=== PATIENT | male | born 1970 ===

== ENCOUNTER 2022-02-17 10:28 | Inpatient (IN) | payer OTHER, MEDICAID ==
[2022-02-17] VITALS (7 sets, daily range): BP systolic 103–112; BP diastolic 63–77
[~2022-02-17] VITALS: Ht 175.3 cm; Wt 111.4 kg
[2022-02-17 11:38] LABS: Basophils # (auto) 0 10 ^3/uL (0-0.2); Eosinophils # (auto) 0 10 ^3/uL (0-0.8); Eosinophils % (auto) 0.4 % (0.0-7.0); Lymphocytes # (auto) 0.2 10 ^3/uL (0.4-5.4); White Blood Cell 7.2 10^3/uL (4.4-10.8)
[2022-02-17 11:41] LABS: Albumin 1.6 g/dL (3.4-5.0); Basophils % (auto) 0.7 % (0.0-2.0); Calcium 8.5 mg/dL (8.5-10.1); Hematocrit 21.1 % (41.0-53.0); Lymphocytes % (auto) 2.8 % (10.0-50.0); Mean Corpuscular Hemoglobin 28.9 pg (28.0-32.0); Mean Corpuscular Volume 90.4 fL (80.0-100.0); Monocytes % (auto) 13.4 % (0.0-12.0); Neutrophils % (auto) 82.7 % (37.0-80.0); Nucleated Red Blood Cells % 0.1 %; Potassium 4.2 mmol/L (3.5-5.1); Red Blood Cells 2.34 10^6/uL (4.5-5.90)
[2022-02-17 11:43] LABS: Red Cell Distribution Width 21.1 % (11.8-14.3)
[2022-02-17 11:45] LABS: BUN/Creatinine Ratio 33.3; Bilirubin, Total 1.3 mg/dL (0.2-1.0); Total Protein 6.2 g/dL (6.4-8.2)
[2022-02-17 11:46] LABS: Hemoglobin 6.8 g/dL (13.5-17.5)
[2022-02-17 11:56] LABS: INR 1.27 (0.9-1.15); Partial Thromboplastin Time 37.3 sec (23.6-33.0)
[2022-02-17] MEDS ORDERED: cefTRIAXone 1GM/50ML D5W 50 ML IV ONE (13:45)
[2022-02-17] MEDS ORDERED: IOHEXOL 350 MG/ML 100ML IJ ONE ×2 (13:59→19:59)
[2022-02-17 14:40] LABS: Lactic Acid w/Reflex 4.8 mmol/L (0.4-2.0)
[2022-02-17] MEDS ORDERED: MORPHINE SULFATE INJ 2 MG/ml SYRG IV PRN (15:00)
[2022-02-17] MEDS ORDERED: NITROGLYCERIN 0.4 MG SL TAB SL PRN (15:00)
[2022-02-17] MEDS ORDERED: ONDANSETRON HCL 4 MG/2 ML VIAL IV PRN (15:15)
[2022-02-17] MEDS ORDERED: hydrALAZINE HCL 20 MG/ML VL IV PRN (15:15)
[2022-02-17] MEDS ORDERED: TPN PER PHARMACY 0 ML IV SCH (16:00)
[2022-02-17] MEDS ORDERED: DEXTROSE (50%) 50ML SYRG IV SCH (16:00)
[2022-02-17 17:26] LABS: Magnesium 2.5 mg/dL (1.6-2.6); Phosphorus 2.8 mg/dL (2.5-4.90)
[2022-02-17] MEDS ORDERED: TPN IV SCH (17:45)
[2022-02-17] MEDS: InsuLIN REG 1unit/0.01ml Soln (100units/ml) SC SCH (18:00)
[2022-02-17] MEDS: ACCU-CHEK COMFORT CURVE STRIP VI SCH (18:37)
[2022-02-17] MEDS ORDERED: SODIUM CHLORIDE 0.9% 500 ML IV ONE (20:00)
[2022-02-17 21:01] LABS: Urine Amorphous Crystal FEW /hpf (None Seen); Urine Bacteria NONE SEEN /hpf (None Seen); Urine Blood Negative /uL (Negative); Urine Specific Gravity 1.019 (1.001-1.035); Urine WBC 1 /hpf (0 - 3)
[2022-02-18 00:11] LABS: Hemoglobin 7.3 g/dL (13.5-17.5)
[2022-02-18 00:12] LABS: Hematocrit 23.4 % (41.0-53.0)
[2022-02-18 04:32] LABS: Basophils # (auto) 0 10 ^3/uL (0-0.2); Basophils % (auto) 0.4 % (0.0-2.0); Eosinophils # (auto) 0 10 ^3/uL (0-0.8); Eosinophils % (auto) 0.5 % (0.0-7.0); Hematocrit 23.4 % (41.0-53.0); Hemoglobin 7.4 g/dL (13.5-17.5); Lymphocytes # (auto) 0.2 10 ^3/uL (0.4-5.4); Lymphocytes % (auto) 3.2 % (10.0-50.0); Mean Corpuscular Hemoglobin 28.8 pg (28.0-32.0); Mean Corpuscular Hgb Conc. 31.8 g/dL (32.0-36.0); Mean Corpuscular Volume 90.8 fL (80.0-100.0); Monocytes # (auto) 1.1 10 ^3/uL (0-1.3); Monocytes % (auto) 15.8 % (0.0-12.0); Neutrophils # (auto) 5.6 10 ^3/uL (1.6-8.6); Neutrophils % (auto) 80.1 % (37.0-80.0); Red Blood Cells 2.58 10^6/uL (4.5-5.90)
[2022-02-18 04:34] LABS: Red Cell Distribution Width 20.8 % (11.8-14.3)
[2022-02-18 04:46] LABS: INR 1.27 (0.9-1.15)
[2022-02-18 04:50] LABS: Albumin 1.7 g/dL (3.4-5.0); Calcium 8.7 mg/dL (8.5-10.1); Potassium 4.2 mmol/L (3.5-5.1)
[2022-02-18 04:55] LABS: BUN/Creatinine Ratio 37.3; Bilirubin, Total 1.4 mg/dL (0.2-1.0); Total Protein 6.2 g/dL (6.4-8.2)
[2022-02-18] MEDS: InsuLIN REG 1unit/0.01ml Soln (100units/ml) SC SCH ×4 (05:57→17:54)
[2022-02-18] MEDS: ACCU-CHEK COMFORT CURVE STRIP VI SCH ×4 (05:57→17:54)
[2022-02-18] MEDS ORDERED: AMINO ACID INFUSION IN D10W 1,000 ML IV NR (07:00)
[2022-02-18] MEDS ORDERED: TPN IV SCH (07:00)
[2022-02-18 09:22] LABS: Hemoglobin 7.6 g/dL (13.5-17.5)
[2022-02-18 09:24] LABS: Hematocrit 23.7 % (41.0-53.0)
[2022-02-18] MEDS ORDERED: ENOXAPARIN SOD 40 MG/0.4 ML SYRINGE SC SCH (10:00)
[2022-02-18] MEDS: PANTOPRAZOLE 40 MG/10 ML VIAL INJ IV SCH (11:19)
[2022-02-18] MEDS ORDERED: levoFLOXacin 750MG 150 ML IV SCH (12:45)
[2022-02-18] MEDS ORDERED: CLINIMIX PER PHARMACY IV NR (13:30)
[2022-02-18 15:23] LABS: Hemoglobin 7.2 g/dL (13.5-17.5)
[2022-02-18 15:24] LABS: Hematocrit 22.3 % (41.0-53.0)
[2022-02-18] MEDS ORDERED: TPN PER PHARMACY IV NR ×7 (20:00)
[2022-02-18 21:32] LABS: Hemoglobin 7.1 g/dL (13.5-17.5)
[2022-02-18 21:34] LABS: Hematocrit 22.3 % (41.0-53.0)
[2022-02-18 21:53] VITALS: BP 90/57
[2022-02-19] MEDS: DOXYCYCLINE 100MG/250ML 250 ML IV SCH ×3 (00:58→23:12)
[2022-02-19 04:53] VITALS: BP 97/70
[2022-02-19 05:15] LABS: Basophils # (auto) 0 10 ^3/uL (0-0.2); Basophils % (auto) 0.4 % (0.0-2.0); Eosinophils # (auto) 0 10 ^3/uL (0-0.8); Eosinophils % (auto) 0.5 % (0.0-7.0); Lymphocytes # (auto) 0.3 10 ^3/uL (0.4-5.4); Monocytes # (auto) 0.9 10 ^3/uL (0-1.3); Nucleated Red Blood Cells % 0.1 %
[2022-02-19 05:18] LABS: Hematocrit 20.9 % (41.0-53.0); Hemoglobin 7.1 g/dL (13.5-17.5); Lymphocytes % (auto) 3.8 % (10.0-50.0); Mean Corpuscular Hemoglobin 30.4 pg (28.0-32.0); Mean Corpuscular Hgb Conc. 33.8 g/dL (32.0-36.0); Mean Corpuscular Volume 89.9 fL (80.0-100.0); Neutrophils # (auto) 6.4 10 ^3/uL (1.6-8.6); Neutrophils % (auto) 83.3 % (37.0-80.0); Red Blood Cells 2.32 10^6/uL (4.5-5.90); White Blood Cell 7.7 10^3/uL (4.4-10.8)
[2022-02-19 05:19] LABS: Red Cell Distribution Width 20.5 % (11.8-14.3)
[2022-02-19 05:35] LABS: Potassium 3.9 mmol/L (3.5-5.1)
[2022-02-19 05:44] LABS: Albumin 1.5 g/dL (3.4-5.0); BUN/Creatinine Ratio 43.4; Bilirubin, Total 1.4 mg/dL (0.2-1.0); Calcium 8.5 mg/dL (8.5-10.1); Magnesium 2.6 mg/dL (1.6-2.6); Phosphorus 1.9 mg/dL (2.5-4.90); Total Protein 5.8 g/dL (6.4-8.2)
[2022-02-19] MEDS: InsuLIN REG 1unit/0.01ml Soln (100units/ml) SC SCH ×5 (06:00→23:12)
[2022-02-19] MEDS: ACCU-CHEK COMFORT CURVE STRIP VI SCH ×5 (06:13→23:12)
[2022-02-19 09:00] VITALS: BP 99/58
[2022-02-19] MEDS ORDERED: FENT25DI2 TD (09:35)
[2022-02-19] MEDS ORDERED: CHOLTAB14 PO (09:35)
[2022-02-19] MEDS ORDERED: [UNRECOGNIZED DRUG - CODE] IV (09:41)
[2022-02-19] MEDS ORDERED: LEVO200T7 PO (09:41)
[2022-02-19] MEDS ORDERED: HYDR2TAB58 PO (09:41)
[2022-02-19] MEDS ORDERED: CEFT2INJ IJ (09:41)
[2022-02-19] MEDS ORDERED: AZITHROMYCIN 500MG/ 250ML 250 ML IV SCH (10:00)
[2022-02-19] MEDS: PANTOPRAZOLE 40 MG/10 ML VIAL INJ IV SCH (11:12)
[2022-02-19] MEDS: cefTRIAXone 1GM/50ML D5W 50 ML IV SCH (11:12)
[2022-02-19] MEDS ORDERED: POTASSIUM PHOSPHATE 22 MEQ in SODIUM CHL 0.9% 100 ML IV ONE (12:00)
[2022-02-19 13:00] VITALS: BP 96/62
[2022-02-19] MEDS ORDERED: LIDOCAINE 1% (LOCAL ANESTH.) PF 5ml SDV ID ONE (15:30)
[2022-02-19] MEDS ORDERED: TPN PER PHARMACY IV NR ×6 (20:00)
[2022-02-19 22:00] VITALS: BP 119/73
[2022-02-19] MEDS: SODIUM CHLOR 0.9% PF (SALINE LOCK) 10ML VIAL/SYR IV SCH (22:30)
[2022-02-20] VITALS (7 sets, daily range): BP systolic 105–114; BP diastolic 61–73
[2022-02-20] MEDS: ALBUTEROL SULF 2.5 MG/0.5ML(0.5%) NEB SOLN NEB PRN ×4 (02:38→19:04)
[2022-02-20] MEDS: IPRATROPIUM BROM 0.5 MG/2.5ML INH SOL NEB PRN ×4 (02:38→19:04)
[2022-02-20] MEDS: InsuLIN REG 1unit/0.01ml Soln (100units/ml) SC SCH ×4 (05:59→23:48)
[2022-02-20] MEDS: ACCU-CHEK COMFORT CURVE STRIP VI SCH ×4 (05:59→23:41)
[2022-02-20 06:16] LABS: Basophils # (auto) 0 10 ^3/uL (0-0.2); Basophils % (auto) 0.4 % (0.0-2.0); Hemoglobin 7.1 g/dL (13.5-17.5); Lymphocytes # (auto) 0.3 10 ^3/uL (0.4-5.4); Mean Corpuscular Volume 90.8 fL (80.0-100.0)
[2022-02-20 06:18] LABS: Eosinophils # (auto) 0 10 ^3/uL (0-0.8); Eosinophils % (auto) 0.5 % (0.0-7.0); Hematocrit 22.3 % (41.0-53.0); Lymphocytes % (auto) 3.3 % (10.0-50.0); Mean Corpuscular Hemoglobin 28.8 pg (28.0-32.0); Mean Corpuscular Hgb Conc. 31.7 g/dL (32.0-36.0); Monocytes # (auto) 0.7 10 ^3/uL (0-1.3); Monocytes % (auto) 8.8 % (0.0-12.0); Neutrophils # (auto) 7.2 10 ^3/uL (1.6-8.6); Nucleated Red Blood Cells % 0.1 %; Red Blood Cells 2.46 10^6/uL (4.5-5.90); Red Cell Distribution Width 20.6 % (11.8-14.3); White Blood Cell 8.3 10^3/uL (4.4-10.8)
[2022-02-20 06:37] LABS: Albumin 1.5 g/dL (3.4-5.0); BUN/Creatinine Ratio 37.1; Bilirubin, Total 1.4 mg/dL (0.2-1.0); Calcium 8.2 mg/dL (8.5-10.1); Phosphorus 2.1 mg/dL (2.5-4.90); Total Protein 5.9 g/dL (6.4-8.2)
[2022-02-20] MEDS ORDERED: PATIENTS OWN MEDICATION (Levothyroxine Sodium 200 MCG) PO SCH (09:45)
[2022-02-20] MEDS: LEVOTHYROXINE SODIUM 100 MCG/5 ML INJ IV SCH (11:04)
[2022-02-20] MEDS: cefTRIAXone 1GM/50ML D5W 50 ML IV SCH (11:04)
[2022-02-20] MEDS: PANTOPRAZOLE 40 MG/10 ML VIAL INJ IV SCH (11:04)
[2022-02-20] MEDS: SODIUM CHLOR 0.9% PF (SALINE LOCK) 10ML VIAL/SYR IV SCH ×2 (11:05→22:16)
[2022-02-20] MEDS: DOXYCYCLINE 100MG/250ML 250 ML IV SCH ×2 (12:04→23:40)
[2022-02-20] MEDS ORDERED: SODIUM PHOSPHATES 40 MEQ in D5W 5% 250 ML IV ONE (12:15)
[2022-02-20] MEDS ORDERED: TPN PER PHARMACY IV NR ×7 (20:00)
[2022-02-21] VITALS (7 sets, daily range): BP systolic 99–133; BP diastolic 61–64
[2022-02-21] MEDS: ALBUTEROL SULF 2.5 MG/0.5ML(0.5%) NEB SOLN NEB PRN ×2 (00:06→17:50)
[2022-02-21] MEDS: IPRATROPIUM BROM 0.5 MG/2.5ML INH SOL NEB PRN ×2 (00:06→17:50)
[2022-02-21] MEDS: InsuLIN REG 1unit/0.01ml Soln (100units/ml) SC SCH ×4 (06:00→23:37)
[2022-02-21] MEDS: ACCU-CHEK COMFORT CURVE STRIP VI SCH ×4 (06:25→23:38)
[2022-02-21 06:50] LABS: Hemoglobin 7.1 g/dL (13.5-17.5); Lymphocytes # (auto) 0.3 10 ^3/uL (0.4-5.4)
[2022-02-21 06:56] LABS: Basophils # (auto) 0 10 ^3/uL (0-0.2); Basophils % (auto) 0.4 % (0.0-2.0); Eosinophils # (auto) 0.1 10 ^3/uL (0-0.8); Eosinophils % (auto) 0.6 % (0.0-7.0); Hematocrit 22.2 % (41.0-53.0); Lymphocytes % (auto) 3.3 % (10.0-50.0); Mean Corpuscular Hemoglobin 28.9 pg (28.0-32.0); Mean Corpuscular Volume 90.2 fL (80.0-100.0); Monocytes # (auto) 0.8 10 ^3/uL (0-1.3); Monocytes % (auto) 8.7 % (0.0-12.0); Neutrophils # (auto) 7.9 10 ^3/uL (1.6-8.6); Red Blood Cells 2.46 10^6/uL (4.5-5.90); White Blood Cell 9.1 10^3/uL (4.4-10.8)
[2022-02-21] MEDS ORDERED: PATIENTS OWN MEDICATION (Levothyroxine Sodium 200 MCG) PO SCH (07:00)
[2022-02-21 07:09] LABS: Albumin 1.6 g/dL (3.4-5.0); Calcium 8.2 mg/dL (8.5-10.1); Potassium 3.5 mmol/L (3.5-5.1); Red Cell Distribution Width 20.3 % (11.8-14.3)
[2022-02-21 07:15] LABS: BUN/Creatinine Ratio 34.8; Bilirubin, Total 1.4 mg/dL (0.2-1.0); Phosphorus 2.5 mg/dL (2.5-4.90); Total Protein 5.8 g/dL (6.4-8.2)
[2022-02-21] MEDS ORDERED: DOXY-338 PO (09:31)
[2022-02-21] MEDS ORDERED: AMOX500T86 PO (09:31)
[2022-02-21] MEDS: PANTOPRAZOLE 40 MG/10 ML VIAL INJ IV SCH (09:41)
[2022-02-21] MEDS: LEVOTHYROXINE SODIUM 100 MCG/5 ML INJ IV SCH (09:41)
[2022-02-21] MEDS: cefTRIAXone 1GM/50ML D5W 50 ML IV SCH (09:42)
[2022-02-21] MEDS: SODIUM CHLOR 0.9% PF (SALINE LOCK) 10ML VIAL/SYR IV SCH ×2 (09:42→21:43)
[2022-02-21] MEDS: DOXYCYCLINE 100MG/250ML 250 ML IV SCH ×2 (11:14→23:18)
[2022-02-21] MEDS ORDERED: POTASSIUM PHOSPHATE 22 MEQ in SODIUM CHL 0.9% 100 ML IV ONE (11:45)
[2022-02-21] MEDS ORDERED: PPN PER PHARMACY IV NR ×8 (20:00)
[2022-02-22 05:27] VITALS: BP_SYST 123
[2022-02-22] MEDS: ACCU-CHEK COMFORT CURVE STRIP VI SCH ×2 (05:56→12:14)
[2022-02-22] MEDS: InsuLIN REG 1unit/0.01ml Soln (100units/ml) SC SCH ×2 (05:56→12:00)
[2022-02-22] MEDS: IPRATROPIUM BROM 0.5 MG/2.5ML INH SOL NEB PRN ×2 (06:12→10:52)
[2022-02-22] MEDS: ALBUTEROL SULF 2.5 MG/0.5ML(0.5%) NEB SOLN NEB PRN ×2 (06:12→10:52)
[2022-02-22 07:02] LABS: Albumin 1.5 g/dL (3.4-5.0); Calcium 8.1 mg/dL (8.5-10.1); Potassium 3.8 mmol/L (3.5-5.1)
[2022-02-22 07:06] LABS: BUN/Creatinine Ratio 38.4; Bilirubin, Total 1.4 mg/dL (0.2-1.0); Phosphorus 2.6 mg/dL (2.5-4.90); Total Protein 5.6 g/dL (6.4-8.2)
[2022-02-22 08:41] VITALS: BP 115/71
[2022-02-22] MEDS: PANTOPRAZOLE 40 MG/10 ML VIAL INJ IV SCH (09:56)
[2022-02-22] MEDS: LEVOTHYROXINE SODIUM 100 MCG/5 ML INJ IV SCH (09:57)
[2022-02-22] MEDS: cefTRIAXone 1GM/50ML D5W 50 ML IV SCH (09:57)
[2022-02-22] MEDS: SODIUM CHLOR 0.9% PF (SALINE LOCK) 10ML VIAL/SYR IV SCH (10:22)
[2022-02-22] MEDS: DOXYCYCLINE 100MG/250ML 250 ML IV SCH (12:43)
[2022-02-22 12:49] VITALS: BP 114/67
== END 2022-02-22 14:50 | disposition home health service (06) | DRG 314 ==
LOC: ER 10:28 → EDBD 10:28 → TELE 15:00 → TELE-CENTR 02-18 15:55
PROVIDERS: ADMIT Family Medicine; ATTEND Internal Medicine Pulmonary Disease
PROC: 30233N1 Transfusion of Nonautologous Red Blood Cells into Peripheral Vein, Percutaneous Approach (ICD-10-PCS; 2022-02-17)
PROC: 0W9G3ZZ Drainage of Peritoneal Cavity, Percutaneous Approach (ICD-10-PCS; principal; 2022-02-18)
PROC: 02PYX3Z Removal of Infusion Device from Great Vessel, External Approach (ICD-10-PCS; 2022-02-19)
PROC: 02HV33Z Insertion of Infusion Device into Superior Vena Cava, Percutaneous Approach (ICD-10-PCS; 2022-02-19)
DX: T80.219A Unspecified infection due to central venous catheter, initial encounter (principal); J96.21 Acute and chronic respiratory failure with hypoxia; E43 Unspecified severe protein-calorie malnutrition; J18.9 Pneumonia, unspecified organism; C78.00 Secondary malignant neoplasm of unspecified lung; C78.7 Secondary malignant neoplasm of liver and intrahepatic bile duct; C79.31 Secondary malignant neoplasm of brain; R18.8 Other ascites; J90 Pleural effusion, not elsewhere classified; C76.0 Malignant neoplasm of head, face and neck; G89.29 Other chronic pain; Z20.822 Contact with and (suspected) exposure to COVID-19; D64.9 Anemia, unspecified; E03.9 Hypothyroidism, unspecified; E78.5 Hyperlipidemia, unspecified; E83.52 Hypercalcemia; J45.909 Unspecified asthma, uncomplicated; Z85.118 Personal history of other malignant neoplasm of bronchus and lung; Z68.36 Body mass index [BMI] 36.0-36.9, adult; Y84.8 Other medical procedures as the cause of abnormal reaction of the patient, or of later complication, without mention of misadventure at the time of the procedure
CPT/HCPCS: 36415; 36430; 36569; 70450; 71045; 71250; 71275; 76700; 76705; 76942; 80053; 81001; 82962; 83605; 83735; 83880; 83986; 84100; 84443; 84478; 84484; 85014; 85018; 85025; 85379; 85610; 85730; 86850; 86900; 86901; 86920; 87040; 87205; 89051; 93005; 94640; 96365; 97163; 99291; C9113; G0378; J0696; J1815; J3490; J7060